=== PATIENT | male | born 1985 | race Caucasian/White ===

== ENCOUNTER 2021-07-09 12:00 | Emergency (ER) | payer OTHER, SELFPAY ==
[2021-07-09 12:18] VITALS: BP 162/111; PULSE 74; RESP 16; TEMP 36.7; O2SAT 98; BMI 34.2
[2021-07-09 13:05] LABS: COVID19 -Nasal RAPID POSITIVE (Negative)
--- NOTE | 2021-07-09 14:04 | ED.URI ---
HPI - URI/Sore Throat General Chief Complaint: Upper Respiratory Symptoms Stated Complaint: FEVER/COUGH/CHILLS/BODY ACHES/LOSS OF TASTE Time Seen by Provider: 07/09/21 13:07 Source: patient Mode of arrival: Ambulatory History of Present Illness HPI Narrative: 35-year-old gentleman with no significant medical issues presents with COVID like symptoms for 72 hours. He is fully vaccinated. He notes he that they flew to [place] for holidays. He began developing fevers, body aches, cough, chills, headache and today noticed loss of taste. No we else in his immediate household is currently having symptoms. He reports no vomiting, abdominal pain, diarrhea or palpitations. Related Data Home Medications Medication Instructions Recorded Confirmed esomeprazole magnesium 20 mg 20 mg PO DAILY 07/09/21 07/09/21 capsule,delayed release (Nexium 24HR) Allergies Allergy/AdvReac Type Severity Reaction Status Date / Time No Known Drug Allergies Allergy Verified 07/09/21 12:22 Review of Systems Review of Systems Narrative: Remainder of complete review of systems is otherwise unremarkable except for that included in the HPI. Patient History Medical History (Updated 07/09/21 @ 14:10 by Zonia Dominguez MD) COVID-19 Social History Smoking Status: Never smoker Smoking Status: Never smoker alcohol intake frequency: 0-2 drinks per day Substance Use Type: does not use Exam Narrative Exam Narrative: General: Alert appropriate in no acute distress Respiratory: Able to speak in full sentences, no obvious respiratory distress, no accessory muscle use, oxygen saturations 100% on room air Skin: No obvious rashes, warm and dry Neurologic: Grossly intact no obvious asymmetries or abnormalities Psych: appropriate insight and affect, cooperative Initial Vital Signs Initial Vital Signs: Vital Signs Temperature 98.0 F 07/09/21 12:18 Pulse Rate 74 07/09/21 12:18 Respiratory Rate 16 07/09/21 12:18 Blood Pressure 162/111 H 07/09/21 12:18 Pulse Oximetry 98 07/09/21 12:18 Course Orders Ordered: ED Orders 07/09/21 12:25 COVID19 -Nasal swab/Pre-Proc Stat Vital Signs Vital signs: Vital Signs - 8 hr 07/09/21 12:18 Temperature 98.0 F Pulse Rate 74 Respiratory Rate 16 Blood Pressure 162/111 H Pulse Oximetry 98 MDM - URI/Sore Throat Lab Data Labs: Lab Results 07/09/21 Range/Units 12:25 SARS-CoV-2 (PCR) Positive H (Negative) MDM Narrative Medical decision making narrative: 35-year-old otherwise healthy fully vaccinated gentleman with positive COVID-19 test. At this point he has mild symptoms and no oxygen needs. Discussed current recommendations for quarantine and isolation. Questions are answered and he is safe for home discharge Discharge Plan Departure Patient Disposition: Home Clinical Impression: COVID-19 Instructions: DI for COVID-19 (Suspected or Confirmed ) Activity Restrictions/Additional Instructions: Thank you for being immunized, because of that you get to go home today. If you find that your breathing is worse or having new or concerning symptoms, please return to the emergency department CDC recommendations regarding quarantine are changing. Please review with your command what their current recommendations are with vaccinated individuals who are COVID positive. July 07 should be considered your 1st day of symptoms and beginning of your quarantine. Prescriptions: No Action esomeprazole magnesium [Nexium 24HR] 20 mg Capsule,Delayed Release(Dr/Ec) 20 mg PO DAILY 0RF Referrals: Hilton Chowdary MD [Primary Care Provider] - Stand Alone Forms: Work Release Note
== END 2021-07-09 14:32 | disposition home or self-care (01) ==
PROVIDERS: Emergency Provider Emergency Medicine; PCP Family Medicine
DX: U07.1 COVID-19 (principal)
CPT/HCPCS: 87635; 99281; C9803